=== PATIENT | male | born 1990 | race Two or more races ===

== ENCOUNTER 2020-12-06 15:34 | Outpatient (CLI) | payer OTHER | END 2020-12-06 15:45 | disposition home or self-care (01) | LOC: OFIC 805 15:34 | PROVIDERS: ATTEND Otolaryngology Otology & Neurotology | DX: K21.9 Gastro-esophageal reflux disease without esophagitis (principal); R09.89 Other specified symptoms and signs involving the circulatory and respiratory systems; J02.8 Acute pharyngitis due to other specified organisms ==